=== PATIENT | male | born 1980 | race Hispanic/Latino ===

== ENCOUNTER 2023-07-10 18:35 | Emergency (ER) | payer OTHER, SELFPAY ==
[2023-07-10] MEDS ORDERED: Amoxicillin/Potassium Clav 875 MG TAB ONE (19:18)
[2023-07-10] MEDS ORDERED: Boostrix 0.5 ML (Tdap) VIAL (>/=7 yrs of age) ONE (19:27)
== END 2023-07-10 19:51 | disposition home or self-care (01) ==
LOC: CSHERS 18:35
DX: S51.831A Puncture wound without foreign body of right forearm, initial encounter (principal); W54.0XXA Bitten by dog, initial encounter; Z23 Encounter for immunization
CPT/HCPCS: 90471; 90715